=== PATIENT | male | born 1995 | race American Indian/Alaskan Native ===

== ENCOUNTER 2017-01-02 22:54 | Emergency (ER) | payer MEDICAID, MEDICARE ==
[2017-01-02 23:55] LABS: Basophils % (Auto) 1.1 % (0.0-1.8); Eosinophils % (Auto) 2.1 % (0.0-4.3); Hematocrit 38.4 % (35.5-45.6); Hemoglobin 12.8 gm/dl (11.8-15.2); Mean Corpuscular HGB Conc 33 % (32-34); Mean Corpuscular Hemoglobin 31 pg (28-32); Mean Corpuscular Volume 93 fl (84-94); Platelet Count 241 K/mm3 (140-440); Red Blood Count 4.11 M/mm3 (3.65-5.03); Red Cell Distribution Width 15.2 % (13.2-15.2); White Blood Count 14.6 K/mm3 (4.5-11.0)
[2017-01-03 00:12] LABS: Anion Gap 19 mmol/L; BUN/Creatinine Ratio 18; Blood Urea Nitrogen 30 mg/dL (9-20); Calcium 9.3 mg/dL (8.4-10.2); Carbon Dioxide 20 mmol/L (22-30); Chloride 101.6 mmol/L (98-107); Glucose 92 mg/dL (75-100); Potassium 4.2 mmol/L (3.6-5.0); Sodium 136 mmol/L (137-145)
[2017-01-03 00:57] LABS: Bacteria,Urine 1+ /HPF (Negative); Bilirubin,Urine NEG (Negative); Blood,Urine SM (Negative); Ketones,Urine NEG (Negative); Leukocyte Esterase,Urine SM (Negative); Mucus,Urine FEW /HPF; Nitrite,Urine NEG (Negative); Urobilinogen,Urine < 2.0 mg/dL (<2.0)
[2017-01-03 00:59] LABS: Protein,Urine >500 mg/dL (Negative)
[2017-01-03] MEDS ORDERED: NACL 0.9% 1000 ML 1,000 ML IV ONE (03:47)
[2017-01-03] MEDS ORDERED: ZOSYN/NS 4.5GM/100ML 4.5 GM/100 ML VIAL IV ONE (03:48)
[2017-01-03] MEDS ORDERED: MORPHINE IV ONE (03:48)
--- NOTE | 2017-01-03 03:52 | Emergency Department Report ---
ED Male HPI - General Chief complaint: Urogenital-Male Stated complaint: LOWER BODY PAIN Time Seen by Provider: 01/03/17 03:47 Source: patient Mode of arrival: Ambulatory Limitations: No Limitations - History of Present Illness Initial comments: 21-year-old male past medical history kidney transplant 2014 on CellCept and Prograf, hypertension presents with complaint of one to 2 days of right-sided scrotal swelling and pain. Subjective fever chills. Patient awake alert and oriented 3 appears uncomfortable. States he received his kidney transplant at [facility]. Complaint: testicle pain Onset/Timin -: days(s) - Related Data Home Medications Medication Instructions Recorded Confirmed Last Taken Acyclovir [Zovirax Cream] 10/25/13 10/25/13 Unknown Metoprolol [Lopressor TAB] 10/25/13 10/25/13 Unknown Minoxidil [Loniten] 10/25/13 10/25/13 Unknown Mycophenolate [Cellcept] 10/25/13 10/25/13 Unknown Prednisone [predniSONE] 10/25/13 10/25/13 Unknown Sulfamethoxazole/Trimethoprim 10/25/13 10/25/13 Unknown [Bactrim 400-80 mg] Tacrolimus [Prograf] 10/25/13 10/25/13 Unknown cloNIDine [Catapres] 10/25/13 10/25/13 Unknown Allergies Allergy/AdvReac Type Severity Reaction Status Date / Time No Known Allergies Allergy Unverified 10/25/13 14:47 ED Review of Systems ROS: Stated complaint: LOWER BODY PAIN Other details as noted in HPI ED Past Medical Hx - Past Medical History Previous Medical History?: Yes Hx Hypertension: Yes - Surgical History Past Surgical History?: Yes Additional Surgical History: Kidney transplant 09/09/13 - Social History Smoking Status: Current Every Day Smoker Substance Use Type: None - Medications Home Medications: Home Medications Medication Instructions Recorded Confirmed Last Taken Type Acyclovir [Zovirax Cream] 10/25/13 10/25/13 Unknown History Metoprolol [Lopressor TAB] 10/25/13 10/25/13 Unknown History Minoxidil [Loniten] 10/25/13 10/25/13 Unknown History Mycophenolate [Cellcept] 10/25/13 10/25/13 Unknown History Prednisone [predniSONE] 10/25/13 10/25/13 Unknown History Sulfamethoxazole/Trimethoprim 10/25/13 10/25/13 Unknown History [Bactrim 400-80 mg] Tacrolimus [Prograf] 10/25/13 10/25/13 Unknown History cloNIDine [Catapres] 10/25/13 10/25/13 Unknown History ED Physical Exam - General Limitations: No Limitations ED Course Vital Signs 01/02/17 01/02/17 23:14 23:25 Temperature 100.4 F H 100.4 F H Pulse Rate 112 H 122 H Respiratory 20 17 Rate Blood Pressure 139/99 139/99 O2 Sat by Pulse 99 99 Oximetry ED Medical Decision Making - Lab Data Result diagrams: 01/02/17 23:34 01/02/17 23:34 Critical care attestation.: If time is entered above; I have spent that time in minutes in the direct care of this critically ill patient, excluding procedure time. ED Disposition Condition: Stable Referrals: PRIMARY CARE, [Primary Care Provider] - 3-5 Days
[2017-01-03] MEDS ORDERED: VANCOMYCIN PHARMACY TO DOSE IV SCH (04:00)
[2017-01-03] MEDS ORDERED: VANCOMYCIN/NS 1 GM/250 ML 1 GM/250 ML BAG IV ONE (04:00)
[2017-01-03] MEDS ORDERED: BENADRYL ONE (05:31)
[2017-01-03] MEDS ORDERED: BENADRYL IV ONE (05:31)
--- NOTE | 2017-01-03 07:03 | Emergency Department Report ---
Chief Complaint: Urogenital-Male Stated Complaint: LOWER BODY PAIN Time Seen by Provider: 01/03/17 03:47 - HPI History of Present Illness: 21-year-old male past medical history kidney transplant 2014 on CellCept and Prograf, hypertension presents with complaint of one to 2 days of right-sided scrotal swelling and pain. Subjective fever chills. Patient awake alert and oriented 3 appears uncomfortable. States he received his kidney transplant at [facility]. Patient complaining of persistent pain in right groin. States it is very uncomfortable. - ROS Review of Systems: History of kidney transplant 2013 secondary to nephrotic syndrome. One day of worsening right sided testicular/inguinal pain - Exam Vital Signs: Vital Signs 01/02/17 01/02/17 23:14 23:25 Temperature 100.4 F H 100.4 F H Pulse Rate 112 H 122 H Respiratory 20 17 Rate Blood Pressure 139/99 139/99 O2 Sat by Pulse 99 99 Oximetry Physical Exam: Heart S1-S2, lungs clear, palpable right sided scrotal/inguinal mass painful to touch with some external erythema. MSE screening note: Focused history and physical exam performed. Due to findings the following was ordered: Screening Assessment/Plan/Differential Dx: Possible incarcerated right-sided inguinal hernia versus inguinal abscess in transplantation, Sirs 1- This initial assessment/diagnostic orders/clinical plan/ treatment(s) is/are subject to change based on pt's health status, clinical progression and re- assessment by fellow clinical providers in the ED. Further treatment and workup at subsequent clinical provers discretion. Patient/guardians urged not to elope from ED as their condition may be serious if not clinically assessed and managed. 2-case discussed with Dr. Escamilla. Ultrasound suggestive of right-sided inguinal hernia. Given patient's clinical signs of pain with visible external swelling and severe discomfort to palpation I suspect this may be an incarcerated inguinal hernia. As Dr. Escamilla finished her shift I also discussed case with Dr. Dominguez. As per Dr. Dominguez I discussed case with on-call surgeon . and will come to evaluate the patient and is requesting CT with by mouth contrast only. Patient's creatinine is currently 1.7 and is a renal transplant patient therefore will bypass IV contrast to mitigate any potential renal damage 3-NPO, IV Fluid, analgesia when necessary, patient empirically covered with Zosyn and vancomycin as I initially suspected patient may have had inguinal/ scrotal abscess 4-SIRS criteria + 5- Ct with PO Contrast ordered 6- I discussed case with Dr. Escamilla, Dr. Dominguez, Dr. Hutton and CARLA Mckinnon and signed pt out to other providers to continue care. medical record clerk made aware to uptriage pt to main ED for closer monitoring than [facility] ED Medical Decision Making - Lab Data Result diagrams: 01/02/17 23:34 01/02/17 23:34 ED Disposition for MSE Condition: Stable Referrals: PRIMARY CARE, [Primary Care Provider] - 3-5 Days
[2017-01-03 07:59] VITALS: BP 158/112
--- NOTE | 2017-01-03 10:20 | Cat Scan Report ---
CT of the abdomen and pelvis with oral contrast. History: Inguinal hernia. Findings: The liver and spleen are normal. The gallbladder and pancreas are normal. There is atrophy of the [place] kidneys. Renal transplant is seen in the right upper and right lower quadrants. There is no hydronephrosis, renal mass, or intrarenal stones. There is no bowel dilatation. There are no pelvic masses or abnormal fluid collections. There is no evidence of a right inguinal hernia. Correlation with physical exam is recommended. Impression: Normal appearance of transplanted right kidney with atrophy of the [place] kidneys. No other specific findings are seen.
--- NOTE | 2017-01-03 10:32 | Emergency Department Report ---
HPI - General Chief Complaint: Urogenital-Male Time Seen by Provider: 01/03/17 03:47 - HPI HPI: This is a 21 year-old male presents to the emergency department with complaint of a one to 2 day history of some right-sided scrotal swelling and pain. All the patient present with a low-grade fever, he felt febrile prior to coming in but did not check his temperature. He did not take anything for her symptoms. Presentation. He denies any dysuria, penile discharge. Patient has a history of kidney transplant from 2013 and is on CellCept and Prograf. His kidney and/or transplant physician is through [facility]. He denies having a primary care physician. No recent travel or sick contacts at home. ED Past Medical Hx - Past Medical History Previous Medical History?: Yes Hx Hypertension: Yes - Surgical History Past Surgical History?: Yes Additional Surgical History: Kidney transplant 09/09/13 - Social History Smoking Status: Current Every Day Smoker Substance Use Type: None - Medications Home Medications: Home Medications Medication Instructions Recorded Confirmed Last Taken Type Acyclovir [Zovirax Cream] 10/25/13 10/25/13 Unknown History Metoprolol [Lopressor TAB] 10/25/13 10/25/13 Unknown History Minoxidil [Loniten] 10/25/13 10/25/13 Unknown History Mycophenolate [Cellcept] 10/25/13 10/25/13 Unknown History Prednisone [predniSONE] 10/25/13 10/25/13 Unknown History Sulfamethoxazole/Trimethoprim 10/25/13 10/25/13 Unknown History [Bactrim 400-80 mg] Tacrolimus [Prograf] 10/25/13 10/25/13 Unknown History cloNIDine [Catapres] 10/25/13 10/25/13 Unknown History Doxycycline [Vibramycin CAP] 100 mg PO Q12HR #20 capsule 01/03/17 Unknown Rx HYDROcodone/APAP 5-325 [[place] 1 each PO Q6HR PRN #10 tablet 01/03/17 Unknown Rx 5/325] ED Review of Systems ROS: Stated complaint: LOWER BODY PAIN Other details as noted in HPI Comment: All other systems reviewed and negative Constitutional: denies: chills, fever Eyes: denies: eye pain, eye discharge, vision change ENT: denies: ear pain, throat pain Respiratory: denies: cough, shortness of breath, wheezing Cardiovascular: denies: chest pain, palpitations Genitourinary: testicular pain. denies: dysuria Musculoskeletal: denies: back pain, joint swelling, arthralgia Skin: denies: change in color, pruritus Neurological: denies: headache, weakness, paresthesias Physical Exam - Physical Exam Vital Signs: Vital Signs 01/02/17 01/02/17 01/03/17 23:14 23:25 07:56 Temperature 100.4 F H 100.4 F H 99.1 F Pulse Rate 112 H 122 H 91 H Respiratory 20 17 24 Rate Blood Pressure 139/99 139/99 Blood Pressure 158/112 [Left] O2 Sat by Pulse 99 99 100 Oximetry Physical Exam: GENERAL: The patient is well-developed well-nourished. HENT: Normocephalic. Atraumatic. Patient has moist mucous membranes. EYES: Extraocular motions are intact. Pupils equal reactive to light bilaterally. NECK: Supple. Trachea is midline. CHEST/LUNGS: Clear to auscultation. There is no respiratory distress noted. HEART/CARDIOVASCULAR: Regular. There is no tachycardia. There is no gallop rub or murmur. ABDOMEN: Abdomen is soft, nontender. Patient has normal bowel sounds. There is no abdominal distention. SKIN: There is some thickening of the skin and possibly some mild erythema to the right lateral portion of the scrotum that could be some induration for cellulitis. There is no fluctuance or obvious abscess. : There is some tenderness to palpation to the right scrotum and testicle which is swollen. No palpable hernia. NEURO: The patient is awake, alert, and oriented. The patient is cooperative. The patient has no focal neurologic deficits. The patient has normal speech. MUSCULOSKELETAL: There is no tenderness or deformity. There is no evidence of acute injury. ED Course Vital Signs 01/02/17 01/02/17 01/03/17 23:14 23:25 07:56 Temperature 100.4 F H 100.4 F H 99.1 F Pulse Rate 112 H 122 H 91 H Respiratory 20 17 24 Rate Blood Pressure 139/99 139/99 Blood Pressure 158/112 [Left] O2 Sat by Pulse 99 99 100 Oximetry - Consultations Consultation #1: The general surgeon supervisor [employer], Dr Macario, was contacted earlier by the PA and the surgeon came in to see the patient and also evaluated the CT scan along with radiologist. The surgeon did not feel that the physical exam showed any obvious signs of hernia and then the CT scan came back that did not show any right inguinal hernia. Therefore there does not appear to be any signs of any incarcerated hernia or any obstruction and nothing that requires any immediate surgical intervention. 01/03/17 10:59 ED Medical Decision Making - Lab Data Result diagrams: 01/02/17 23:34 01/02/17 23:34 - Radiology Data Radiology results: report reviewed Testicular ultrasound shows a suspected right inguinal hernia with loops of bowel in the scrotal sac. The testicles are intact. There is no testicular mass, torsion or orchitis. CT of the abdomen and pelvis with oral contrast. History: Inguinal hernia. Findings: The liver and spleen are normal. The gallbladder and pancreas are normal. There is atrophy of the [place] kidneys. Renal transplant is seen in the right upper and right lower quadrants. There is no hydronephrosis, renal mass, or intrarenal stones. There is no bowel dilatation. There are no pelvic masses or abnormal fluid collections. There is no evidence of a right inguinal hernia. Correlation with physical exam is recommended. Impression: Normal appearance of transplanted right kidney with atrophy of the [place] kidneys. No other specific findings are seen. Transcribed By: MRP Dictated By: ROSA HO MD Electronically Authenticated By: ROSA HO MD Signed Date/Time: 01/03/17 1003 - Medical Decision Making This patient presented with a one to 2 day history of some right-sided testicular and scrotal pain. Prior to getting this patient, he was seen by the PA who had concern for possible abscess or cellulitis and the patient was given vancomycin and Zosyn. He also wanted to rule out a testicular torsion so a ultrasound was done that did not show any signs of torsion but possibly showed right inguinal hernia. It was at this point that the case was turned over to me. The general surgeon was contacted and the patient had a CT of the abdomen and pelvis with oral contrast, secondary to his history of renal transplant, and the surgeon came in to reevaluate the patient in the emergency department. The surgeon did not feel that the patient had obvious hernia on physical examination. The patient was seen walking around the emergency department and does not appear in any acute distress. Then the CT came back showing no signs of a right inguinal hernia and certainly no signs of any bowel obstruction or significant intestinal abnormalities and did not require any surgical intervention. His urinalysis did show greater than 100 white blood cells in the urine which could be a urinary tract infection but also, along with the testicular pain and swelling, could very well be epididymitis. Patient will be placed on a ten-day course of doxycycline. I expressed to him multiple times the importance of following up with his kidney transplant physician at [facility] for further evaluation. He was also given a referral for urology for a urinary tract infection versus epididymitis. He will return to the ER with any worsening of symptoms or any acute distress. - Differential Diagnosis UTi, epididymitis, cellulitis, hernia Critical Care Time: No Critical care attestation.: If time is entered above; I have spent that time in minutes in the direct care of this critically ill patient, excluding procedure time. ED Disposition Clinical Impression: Right testicular pain, Epididymitis UTI (urinary tract infection) Qualifiers: Urinary tract infection type: acute cystitis Hematuria presence: without hematuria Qualified Code(s): N30.00 - Acute cystitis without hematuria Hypertension Qualifiers: Hypertension type: essential hypertension Qualified Code(s): I10 - Essential ( primary) hypertension Disposition: TO HOME OR SELFCARE Is pt being admited?: No Condition: Stable Instructions: Epididymitis (ED), Urinary Tract Infection in Men (ED), Hypertension (ED) Additional Instructions: Please follow up with a primary care physician in the next few days. I have given him a referral for a local urologist, Dr. Arreguin, to follow up regarding your urinary tract infection and/or epididymitis. Return to the emergency Department with any worsening of your symptoms or any acute distress. It is imperative that he follow up with your kidney transplant physician at [facility]. I have prescribed to an antibiotic, doxycycline, to be taken twice daily for 10 days. Please make sure you follow up with your kidney transplant physician for further lab testing. This antibiotic also can make you more susceptible to sunlight and UV light and therefore it is recommended that you wear sunscreen when going outdoors. You have been prescribed a medication that is sedating and therefore should not be taken prior to driving, working, and responsible for children and in no way should be mixed with alcohol of any quantity. Prescriptions: Doxycycline [Vibramycin CAP] 100 mg PO Q12HR #20 capsule HYDROcodone/APAP 5-325 [[place] 5/325] 1 each PO Q6HR PRN #10 tablet PRN Reason: Pain Referrals: PRIMARY CARE, [Primary Care Provider] - 3-5 Days KOTA ARREGUIN MD [Staff Physician] - 3-5 Days Forms: STI Treatment and Prevention Time of Disposition: 10:38
--- NOTE | 2017-01-03 11:33 | Ultrasound Report ---
FINAL REPORT PROCEDURE: US TESTICULAR TECHNIQUE: Real-time fonseca-scale and color flow Doppler sonography in multiple planes of the scrotum, testicles, and epididymes was performed. Velocity spectral waveform analysis Doppler imaging of the arterial inflow and venous outflow of the testicles was performed with image documentation. CPT 75919 and 62019 HISTORY: scrotal abscess right side. COMPARISON: No prior studies are available for comparison. FINDINGS: RIGHT TESTICLE: Size: 3.8 x 1.6 x 2.2 cm . Appearance: Normal size and echotexture . Arterial blood flow: Normal spectral waveforms, flow velocities and color flow images.. Venous blood flow: Normal spectral waveforms and color flow images. Right epididymis: Normal size and echotexture . Hydrocele: None . There is a complex mass lateral to the right testicle measuring 5.9 x 1.1 x 1.3 centimeters. There is a complex mass superior to the right testicle measuring 3.9 x 2.6 x 1.9 centimeters. These findings appear to be herniated bowel. LEFT TESTICLE Size: 4.1 x 1.5 x 2.5 cm . Appearance: Normal size and echotexture . Arterial blood flow: Normal spectral waveforms, flow velocities and color flow images.. Venous blood flow: Normal spectral waveforms and color flow images. Leftepididymis: Normal size and echotexture . Hydrocele: None . IMPRESSION: Suspected right inguinal hernia with loops of bowel in the scrotal sac. The testicles are intact. There is no testicular mass, torsion or orchitis.
[2017-01-04] MEDS ORDERED: VANCOMYCIN 750 MG in NACL 0.9% 250ML 250 ML IV SCH (05:00)
== END 2017-01-03 11:48 | disposition home or self-care (01) ==
LOC: ED 22:54
DX: N30.00 Acute cystitis without hematuria (principal); N45.1 Epididymitis; N50.811 Right testicular pain; K40.90 Unilateral inguinal hernia, without obstruction or gangrene, not specified as recurrent; I10 Essential (primary) hypertension; F17.200 Nicotine dependence, unspecified, uncomplicated; Z94.0 Kidney transplant status
CPT/HCPCS: 36415; 74176; 80048; 81001; 82140; 85025; 87086; 93975; 96365; 96368; 96375; 99284; G0480; J1200; J2270; J2543; J3370; J7030; 80320